=== PATIENT | female | born 1975 | race Caucasian/White ===

== ENCOUNTER 2018-10-10 05:35 | Observation (INO) | payer MEDICAID ==
[~2018-10-10] VITALS: Ht 162.6 cm; Wt 138.6 kg
[2018-10-10] MEDS ORDERED: METFORMIN HCL500 M1 PO (05:56)
[2018-10-10] MEDS ORDERED: COREG6.25 MG PO (05:56)
[2018-10-10] MEDS ORDERED: ZYRTEC10 MG PO (05:57)
[2018-10-10] MEDS ORDERED: VITAMIN B-1250 MCG PO (05:57)
[2018-10-10] MEDS ORDERED: COZAAR25 MG PO (05:57)
[2018-10-10] MEDS ORDERED: HYDROCHLOROTHIA25 MG PO (05:57)
[2018-10-10] MEDS ORDERED: VITAMIN D31000 UNI2 PO (05:57)
--- NOTE | 2018-10-10 06:29 | NUR ---
PROVIDED SHEET FOR PT COMFORT AT THIS TIME.
--- NOTE | 2018-10-10 06:34 | NUR ---
LUNG SOUND LESS DEMINISHED IN ALL [place] THAN PREVIOUS ASSESSMENT. 0 WHEEZES. REPORTS SHE FEELING BETTER. REPORTS SORE THROAT BUT MORE EASE ON RESPIRATIONS. FACIAL EDEMA APPEARS TO BE RECEDING. DENIES DISTRESS AT THIS TIME CONT TO MONITOR
[2018-10-10 06:46] VITALS: BP 171/86; BP 188/92
[2018-10-10 07:08] LABS: BASOPHILS 0.1 % (0-2); EOSINOPHILS 0.5 % (0-7); HEMATOCRIT 36.7 % (36.0-48.0); HEMOGLOBIN 12.4 g/dL (12-16); IMMATURE GRANULOCYTES 0.4 % (0-5); MCH 29.9 pg (26.0-34.0); MCHC 33.8 g/dL (31.0-37.0); MCV 88.4 fL (80.0-100.0); MEAN PLATELET VOLUME 9.8 fL (7.4-10.4); MONOCYTES 3.5 % (2-11); NEUTROPHILS 81.5 % (40-80); PLATELET COUNT 417 10x3/uL (130-400); RBC 4.15 10x6/uL (4.00-5.40); RDW 12.5 % (11.5-14.5); WBC 18.4 10x3/uL (4.8-10.8)
[2018-10-10 07:24] LABS: ALBUMIN 3.3 g/dL (3.4-5.0); ALKALINE PHOSPHATASE 112 U/L (46-116); ALT (SGPT) 22 U/L (10-68); BILIRUBIN - TOTAL 0.51 mg/dL (0.2-1.3); CALC OSMOLALITY 276 mosm/kg (275-300); CALCIUM 8.6 mg/dL (8.5-10.1); CARBON DIOXIDE 24.5 mmol/L (21.0-32.0); CHLORIDE - SERUM 100 mmol/L (98-107); CREATININE - SERUM 0.8 mg/dL (0.6-1.3); GLUCOSE 184 mg/dL (74-106); POTASSIUM - SERUM 3.6 mmol/L (3.5-5.1); PROTEIN - SERUM 7.2 g/dL (6.4-8.2); SODIUM 135 mmol/L (136-145); UREA NITROGEN 17 mg/dL (7-18); eGFR NON AFRICAN AMERICAN 82 mL/min (90-120)
[2018-10-10 07:42] LABS: CKMB 0.8 U/L (0.0-3.6); CREATINE KINASE 73 UL (21-215)
[2018-10-10 07:44] LABS: TROPONIN-I 0.063 ng/mL (0.000-0.060)
--- NOTE | 2018-10-10 07:46 | NUR ---
RCVD TC FROM LAB: TROPONIN 0.063 DR QUIJANO NOTIFIED
--- NOTE | 2018-10-10 07:57 | NUR ---
REPORT CALLED TO KAY GASTELUM BY SBAR FORMAT
[2018-10-10 07:58] VITALS: BP 126/77
--- NOTE | 2018-10-10 08:05 | NUR ---
TRANSPORTED TO ICU, CONDITION STABLE
[2018-10-10 08:09] VITALS: BP 161/92; BMI 53.0
--- NOTE | 2018-10-10 08:20 | NUR ---
PT RECEIVED FROM ER. VSS. PT DENIES NEEDS GIVEN ICE WATER FOR COMFORT. WILL CNTINUE TO MONITOR
[2018-10-10 09:31] VITALS: Ht 162.6 cm; Wt 138.6 kg
--- NOTE | 2018-10-10 09:40 | NUR ---
pt assisted to bedside commode. denies needs will continue to monitor
--- NOTE | 2018-10-10 12:00 | NUR ---
DR MARE HUANG GIVEN UDPATE. ECHO ORDERED
[2018-10-10 12:21] LABS: % SATURATION 19 % (15-55); IRON 64 ug/dl (35-150); TOTAL IRON BIND CAPACITY 325 ug/dl (260-445); UNSAT IRON BIND CAPACITY 261 ug/dl (150-375)
--- NOTE | 2018-10-10 12:41 | NUR ---
REPORT GIVEN TO MARIA INES VILLANUEVA. TRANSPORTING PT VIA WHEELCHAIR. VSS. DENIES NEEDS
[2018-10-10 12:47] LABS: FERRITIN 122 ng/mL (3-244)
--- NOTE | 2018-10-10 12:56 | NUR ---
transfer from icu by w/c. oreinted to room. call light in reach. will cont. plan of care.
[2018-10-10 15:34] LABS: APPEARANCE CLEAR (CLEAR); BILIRUBIN NEGATIVE (NEGATIVE); COLOR YELLOW (YELLOW); GLUCOSE 100 mg/dL (NEGATIVE); KETONE NEGATIVE (NEGATIVE); NITRITE NEGATIVE (NEGATIVE); PROTEIN NEGATIVE (NEGATIVE); UROBILINOGEN NORMAL (NORMAL)
[2018-10-10 16:05] LABS: CKMB 0.9 U/L (0.0-3.6); CREATINE KINASE 67 UL (21-215); TROPONIN-I 0.031 ng/mL (0.000-0.060)
[2018-10-10 16:44] VITALS: BP 123/68
[2018-10-10 20:00] VITALS: BP 156/75
[2018-10-10 22:20] LABS: CKMB 0.8 U/L (0.0-3.6); CREATINE KINASE 67 UL (21-215); TROPONIN-I 0.048 ng/mL (0.000-0.060)
[2018-10-11] VITALS: BP 138/69
[2018-10-11 04:00] VITALS: BP 151/55
[2018-10-11 06:01] LABS: BASOPHILS 0.1 % (0-2); EOSINOPHILS 0 % (0-7); HEMATOCRIT 33.6 % (36.0-48.0); HEMOGLOBIN 11.3 g/dL (12-16); IMMATURE GRANULOCYTES 0.5 % (0-5); LYMPHOCYTES 6.8 % (15-50); MCH 29.7 pg (26.0-34.0); MCHC 33.6 g/dL (31.0-37.0); MCV 88.2 fL (80.0-100.0); MEAN PLATELET VOLUME 9.7 fL (7.4-10.4); MONOCYTES 1.5 % (2-11); NEUTROPHILS 91.1 % (40-80); PLATELET COUNT 348 10x3/uL (130-400); RBC 3.81 10x6/uL (4.00-5.40); RDW 12.5 % (11.5-14.5); WBC 18.9 10x3/uL (4.8-10.8)
[2018-10-11 06:20] LABS: CALC OSMOLALITY 281 mosm/kg (275-300); CALCIUM 8.4 mg/dL (8.5-10.1); CARBON DIOXIDE 23.4 mmol/L (21.0-32.0); CHLORIDE - SERUM 104 mmol/L (98-107); CREATININE - SERUM 0.7 mg/dL (0.6-1.3); GLUCOSE 170 mg/dL (74-106); POTASSIUM - SERUM 3.5 mmol/L (3.5-5.1); SODIUM 139 mmol/L (136-145); eGFR NON AFRICAN AMERICAN > 90 mL/min (90-120)
[2018-10-11 06:30] LABS: UREA NITROGEN 12 mg/dL (7-18)
[2018-10-11 08:22] VITALS: BP 144/74
[2018-10-11] MEDS ORDERED: EPIPEN 2-P0.3 MG/0.3 IM (10:44)
--- NOTE | 2018-10-11 12:51 | NUR ---
IV AND TELEMETRY DCD. DC PLANS GIVEN. UNDERSTANDING VOICED.
--- NOTE | 2018-10-11 13:03 | NUR ---
ESCORTED TO CAR BY W/C.
--- NOTE | 2018-10-12 16:51 | EC ---
PATIENT:GÓMEZ MCKOY DATE OF SERVICE: 10/10/18 SEX: F MEDICAL RECORD: [id number] DATE OF : [birth year] LOCATION:D. D.211 AGE OF PATIENT: 43 ADMISSION DATE: 10/10/18 REFERRING PHYSICIAN: INTERPRETING PHYSICIAN: OBED GARVEY MD ECHOCARDIOGRAM REPORT ECHO CHARGES 4 ECHO COMPLETE Date: 10/10/18 CLINICAL DIAGNOSIS: ELEVATED TROPONIN ECHOCARDIOGRAPHIC MEASUREMENTS (adult normal given) AC root (d.<3.7cm) 2.2 cm LV Septum d (<1.2 cm> 1.1 cm Valve Excursion 0.9 cm LV Septum (systole) 1.6 cm Left Atria (s.<4.0cm> 4.2 cm LVPW d(<1.2cm) 1.4 cm RV (d.<2.3cm) 3.3 cm LVPW (sytole) 1.5 cm LV diastole(<5.6CM) 4.7 cm MV E-F(>70mm/sec) cm LV systole 2.7 cm LVOT Diameter 1.8 cm MV exc.(>10mm) cm Est.ejection fraction (50-75%) % DOPPLER: LVIT cm/sec A 105 cm/sec E 90 cm/sec LA cm/sec RVSP 32.3 mmHg LVOT 143 cm/sec AOP1/2T m/s Asc. Ao 187 cm/sec RVOT 104 cm/sec RA cm/sec PA 117 cm/sec AV Gradient Peak 14.0 mmHg AV Mean 9.6 mmHg AV Area 2.2 cm MV Gradient Peak 9.5 mmHg MV Mean 4.3 mmHg MV Area cm COMMENTS: Director Informatics: [employer] Consultant: 2 Dr. Treadwell TAPE# PACS Pericardial Effusion N DATE OF SERVICE: 10/10/2018 FINDINGS: 1. Left ventricular chamber size is within normal limits. Left ventricular systolic function is preserved at 55%. 2. Left atrium, right atrium, and right ventricular chamber sizes are mildly dilated. Left atrium measures 4.2 cm. 3. Valvular structures have normal structure and motion. 4. Doppler interrogation reveals mild mitral regurgitation and trace tricuspid regurgitation. No other valvular insufficiency or stenosis. Pulmonary systolic ECHOCARDIOGRAM REPORT [id number] GÓMEZ MCKOY pressure is estimated at 32 mmHg. 5. No evidence of pericardial effusion or left ventricular thrombus. TRANSINT:[id number] Voice Confirmation ID: [id number] DOCUMENT ID: [id number] OBED GARVEY MD at 1651 CC: [id number] DICTATION DATE: 10/10/18 1640 [place] GUIDE: 10/10/18 1858 DIS IN 10/11/18 [facility] [address] [id number]
--- NOTE | 2018-10-12 16:51 | CN ---
PATIENT NAME:GÓMEZ MCKOY MEDICAL RECORD: [id number] : 73 LOCATION:D. D.2114 ADMIT DATE: 10/10/18 ACCOUNT: [id number] CONSULTING PHYSICIAN: OBED GARVEY MD REFERRING PHYSICIAN: SIMONE QUIJANO MD DATE OF CONSULTATION: 10/10/2018 DIAGNOSES: 1. Non-Q-wave myocardial infarction. 2. Anaphylaxis. HISTORY OF PRESENT ILLNESS: Mrs. Mckoy was at home today. She suspected in the past SHE HAS AN ALLERGY TO YOKASTA. She ate YOKASTA and began having throat tightness, shortness of breath, and feeling very flushed. She took Benadryl and progressed despite that. She had an EpiPen from her suspicion of this in the past. She used the EpiPen and presented to the Emergency Room here. She had no chest pain, no chest discomfort. Her EKG is normal. Her troponin is mildly elevated at 0.063. She has had no further cardiac symptomatology. An echocardiogram has been done. PHYSICAL EXAMINATION: GENERAL APPEARANCE: Well-nourished, well-developed, appears stated age. Level of distress, comfortable. PSYCHIATRIC: Mental status, alert, normal affect. Orientation, oriented to time, place and person. EYES: Lids and conjunctiva, noninjected. No discharge, no pallor. ENT: Lips, teeth, gums, normal dentition. Oropharynx, no cyanosis, no pallor. NECK: Carotid arteries, bilateral normal upstroke, no bruits, no thrills. JUGULAR VEINS: No jugular venous pressure or distention. CERVICAL LYMPH NODES: Nontender, nonenlarged. THYROID: Not enlarged. Nontender. No nodules. LUNGS: Respiratory effort, unlabored. CHEST: Normal curvature. No thoracic deformity. No chest wall tenderness. Percussion, resonant. Auscultation, clear. No wheezes, no rales, no rhonchi. CARDIOVASCULAR: Precordial exam, nondisplaced. No heaves or pericardial thrills. Rate and rhythm, regular. Heart sounds, normal S1, normal S2. No S3, no gallop, no rub. Systolic murmur, not heard. Diastolic murmur, not heard. EXTREMITIES: No cyanosis, no edema. Peripheral pulses, full and equal in all extremities, except as noted. No bruits appreciated. ABDOMEN: Soft, nondistended. Normal aorta. No bruit. Nontender. No masses. Liver, nontender, no hepatomegaly. Spleen, nontender, no splenomegaly. MUSCULOSKELETAL: No joint tenderness. No joint swelling. No erythema. NEUROLOGICAL: Normal gait, normal strength, normal tone. SKIN: Warm and dry. OVERALL IMPRESSION: Non-Q-wave myocardial infarction was most likely just strain from the anaphylactoid reaction that she had to the YOKASTA. If the echocardiogram is normal, no other cardiac workup or treatment is necessary. TRANSINT:[id number] Voice Confirmation ID: [id number] DOCUMENT ID: [id number] CONSULT REPORT [id number] GÓMEZ MCKOY, OBED RODARTE at 1651 CC: [id number] DICTATION DATE: 10/10/18 155 FIRE POT OPERATOR: 10/10/18 1844 DIS IN 10/11/18 [facility] [address] [place] [address]
== END 2018-10-11 13:03 | disposition home or self-care (01) ==
LOC: D.ER 05:35 → OBSVTIME 07:45 → D.ICU 07:45 → D.M2 07:45
PROVIDERS: Family Medicine; ADMIT Internal Medicine Nephrology; ATTEND Internal Medicine Nephrology
DX: I21.4 Non-ST elevation (NSTEMI) myocardial infarction (principal); T78.04XA Anaphylactic reaction due to fruits and vegetables, initial encounter; E87.1 Hypo-osmolality and hyponatremia; E11.9 Type 2 diabetes mellitus without complications; E66.01 Morbid (severe) obesity due to excess calories; D64.9 Anemia, unspecified; E87.6 Hypokalemia; Z68.43 Body mass index [BMI] 50.0-59.9, adult